=== PATIENT | female | born 1965 | race Caucasian/White ===

== ENCOUNTER → 2017-06-06 | Outpatient (CLI) | payer OTHER ==
[~2017-06-06] MED LIST: CYAN10005 PO; FERR50TA3 PO; MULT-506; MULT-506 PO
[2017-06-06 10:09] LABS: BASO % 0.5 %; BASO ABS # 0.03 K/uL (0-0.2); EOS % 2.9 %; EOS ABS # 0.16 K/uL (0-0.5); HEMOGLOBIN 13.1 g/dL (12.0-16.0); LYMPH % 35.9 %; MEAN CELL VOLUME 89.8 fL (80-100); MEAN CORPUSCULAR HGB CONC 34.5 g/dl (32-36); MEAN PLATELET VOLUME 9.8 fL (7.4-10.4); MONO % 5.9 %; MONO ABS # 0.33 K/uL (0.11-0.59); NEUT % 54.8 %; NEUT ABS # 3.05 K/uL (1.4-6.5); PLATELET COUNT 267 K/uL (130-400); RED CELL DISTRIBUTION WIDTH CV 12.2 % (11.5-14.5); RED CELL DISTRIBUTION WIDTH SD 39.4 fL (36.4-46.3); WHITE BLOOD COUNT 5.57 K/uL (4.8-10.8)
[2017-06-06 10:46] LABS: BLOOD UREA NITROGEN 20 mg/dl (7-18); CALCIUM 9.3 mg/dl (8.5-10.1); CARBON DIOXIDE 24 mmol/L (21-32); CREATININE 0.92 mg/dl (0.60-1.20); GLUCOSE 89 mg/dl (70-99); POTASSIUM 3.7 mmol/L (3.5-5.1); SODIUM 138 mmol/L (136-145)
== END | disposition home or self-care (01) ==
LOC: C.CPL 09:35
PROVIDERS: ATTEND Orthopaedic Surgery
DX: Z01.818 Encounter for other preprocedural examination (principal); S83.242A Other tear of medial meniscus, current injury, left knee, initial encounter; X58.XXXA Exposure to other specified factors, initial encounter

== ENCOUNTER → 2017-06-29 | Day surgery (SDC) | payer OTHER ==
[2017-06-12 07:17] VITALS: Ht 160 cm; Wt 59.1 kg
[~2017-06-29] VITALS: Ht 160 cm; Wt 59.1 kg
[~2017-06-29] MED LIST changes: +ATROPINE SULFATE 0.1 MG/ML 5ML SYR IV PRN; +CEFAZOLIN 1000MG IV PUSH 7.5 ML IV SCH; +DEXAMETHASONE SOD INJ 4 MG/ML VIAL ONE; +EpHEDrine SULFATE INJ 50 MG/ML AMP IV PRN; +EpINEphrine INJ 1MG/ML AMP 1 MG/ML AMP ONE; +FENTANYL CITRATE INJ 50 MCG/1 ML 2 ML VIAL IV PRN; +FENTANYL CITRATE INJ 50 MCG/1 ML 2 ML VIAL ONE; +HYDR-5688 PO; +HYDROCODONE/ACETAMIN 5/325MG TAB PO PRN; +KETOROLAC TROMETHAMINE 30 MG/ML VIAL ONE; +LACTATED RINGER'S 1000ML 1,000 ML IV SCH; +LIDOCAINE HCL 2% 2 ML VIAL (20MG/ML) ONE; +MIDAZOLAM HCL 1 MG/ML 2ML VIAL ONE; -MULT-506; +ONDANSETRON INJ 2 MG/ML 2 ML VIAL IV PRN; +ONDANSETRON INJ 2 MG/ML 2 ML VIAL ONE; +PROPOFOL IV EMULSION 10 MG/ML 20 ML VIAL IV ONE; +ROPIVACAINE 0.5% 5 MG/ML 30 ML VIAL ONE; +SODIUM CHLORIDE 0.9% 1000ML 1,000 ML IV SCH
--- NOTE | 2017-06-29 10:33 | History & Physical Bridge - [place] ---
H&P Re-Evaluation Bridge Note: I have examined the patient, reviewed the History & Physical and in the interval since the performance of the History & Physical I have noted the following changes of clinical significance: No changes noted
--- NOTE | 2017-06-29 12:55 | [facility] Post Operative Brief Note ---
Immediate Operative Summary Operative Date Jun 29, 2017. Pre-Operative Diagnosis Left Knee Medial Meniscal Tear, Pain Post-Operative Diagnosis Same with chondromalacia Procedure(s) Performed Left Knee Arthroscopy With Partial Medial Meniscectomy and Chondroplasty Surgeon Dr. Nayak [employer] Intern Surgeon(s) Mandi Block PA-C Estimated Blood Loss 5 ml Findings Consistent with Post-Op Diagnosis Specimens None Anesthesia Type General Complication(s) none Disposition Disposition: Recovery Room / PACU
--- NOTE | 2017-06-29 13:02 | Discharge Instructions-SurgCtr ---
Discharge Instructions Date of Service Jun 29, 2017. Visit Reason for Visit: Left Knee Acute Medial Meniscal Tear, Pain Discharge Discharge Diagnosis / Problem: SAME ABOVE Discharge Goals Goal(s): Decrease discomfort, Improve function Activity Recommendations Activity Limitations: as noted below Lifting Limitations: gradually increase as tolerated Exercise/Sports Limitations: gradually increase as tolerated Shower/Bathe: tomorrow Anesthesia . Post Anesthesia Instructions: If you have had General Anesthesia or IV Sedation: * Do not drive today. * Resume driving when surgeon permits. * Do not make important decisions or sign legal documents today. * Call surgeon for: 1. Temperature elevations greater than 101 degrees F. 2. Uncontrollable pain. 3. Excessive bleeding. 4. Persistent nausea and vomiting. 5. Medication intolerance (nausea, vomiting or rash). * For nausea and vomiting use only clear liquids such as: tea, soda, bouillon until nausea subsides, then gradually increase diet as tolerated. * If you have any concerns or questions, call your surgeon's office. If physician is unavailable and it is an emergency, call 911 or go to the nearest emergency room. . Instructions / Follow-Up Instructions / Follow-Up MEDICATIONS: * Resume previous medications unless instructed otherwise by your surgeon. * Always take pain medication on a full stomach or with food to avoid upset stomach. * Do not drink alcohol or drive while taking narcotics. * Ibuprofen or Tylenol may be taken if narcotic not needed. SPECIAL CARE INSTRUCTIONS: __ None _X_ Keep extremity elevated and iced x 48 hours; apply ice 20-30 minutes 8-10 times/day. May remove at night. _X_ Crutches _X_ May discard when able __ Brace/Post-op shoe __ 24 hrs/day __ Remove at night _X_ Dressing __ Maintain until seen in office, may shower with plastic over site _X_ Remove dressings in 24-48 hours and then may shower _X_ Cover incisions with band-aids after showering __ Do not remove steri-strips Call physician if chills or temperature rises above 102 degrees or pain unrelieved by prescribed pain medications. Office [phone] Diet Recommendations Home Diet: no limitations Fluid Restriction: None Procedures Procedures Performed: Left Knee Arthroscopy With Partial Medial Meniscectomy and Chondroplasty Pending Studies Studies pending at discharge: no Work Instructions Return To Work: after follow-up Medical Emergencies . Who to Call and When: Medical Emergencies: If at any time you feel your situation is an emergency, please call 911 immediately. . Non-Emergent Contact Non-Emergency issues call your: Primary Care Provider Call Non-Emergent contact if: you have a fever, temperature is above 101.5 . . "Provider Documentation" section prepared by Mani Block. .
--- NOTE | 2017-06-29 13:15 | OPERATIVE REPORT ---
DATE OF OPERATION: 06/29/2017 PREOPERATIVE DIAGNOSIS: Medial meniscus tear of the left knee. 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 PROCEDURE: Left knee arthroscopy with partial medial meniscectomy and chondroplasty. SURGEON: Dr. Andrew Nayak. DEATH CLAIM EXAMINER: Mani Block PA-C, whose assistance was necessary for positioning of the leg and helping with arthroscopic instrumentation and closure. ANESTHESIA: General. COMPLICATIONS: None. CONDITION: Stable to PACU. INDICATIONS: Vero is a pleasant 52-year-old female who stepped awkwardly off a curb back in March. This was while she was working at [employer]. She has been having significant medial-sided knee pain since. MRI and clinical examination were diagnostic for medial meniscus tear of the left knee. After failing conservative treatment, she elected to undergo arthroscopy. DESCRIPTION OF PROCEDURE: On 06/29/2017, she arrived at [facility] for the above procedure. She was seen in the preoperative holding area and the operative extremity was identified and signed. She was given a preoperative antibiotic, taken back to operating room, laid on the table in supine position and put under general anesthesia. The left knee was then prepped and draped in sterile fashion. Time-out was done and the patient's operative extremity was properly identified. A scope was introduced into a lateral parapatellar portal. Diagnostic arthroscopy showed no loose bodies in suprapatellar pouch. There was no cartilage damage on the trochlea or the patella. The scope was brought into the medial compartment. There was some grade 4 chondral loss on the medial aspect of the distal medial femoral condyle and some areas of unstable cartilage. There was also very complex medial meniscus tear. A medial parapatellar portal was made under direct visualization. A shaver was used to remove the unstable portions of meniscus and complete a partial meniscectomy to get the meniscus back to stable margins. Shaver was also used to complete an acromioplasty and remove all the unstable cartilage fragments off the distal medial femoral condyle. Multiple pictures were taken. The scope was brought into the trochlea. ACL and PCL were intact. The scope was brought into the lateral compartment and there was no meniscus or cartilage damage laterally. The scope was then placed in the medial parapatellar portal. Repeat diagnostic arthroscopy showed no additional pathology. The knee was then irrigated and arthroscopic instrument removed. Portal sites were closed with 3-0 nylon. The knee was then injected with 30 mL of Naropin with epinephrine and Toradol. She was then placed in a soft compressive dressing, extubated, transferred to a [facility] and taken to the postanesthesia care unit in stable condition. She tolerated the procedure well. I attest to the content of the Intraoperative Record and any orders documented therein. Any exception s are noted below.
[2017-06-29 13:38] VITALS: BP 119/82; TEMP 36.5
[2017-06-29 13:58] VITALS: PULSE 60; O2SAT 100
--- NOTE | 2017-06-29 14:17 | Anesthesia Progress Nt - [facility] ---
Anesthesia Post Op Note Date & Time Jun 29, 2017 at 14:17 Vital Signs Pain Intensity: 0 Vital Signs Past 12 Hours Date Time Temp Pulse Resp B/P (MAP) Pulse Ox O2 Delivery O2 Flow Rate FiO2 06/29/17 13:58 60 16 100 Room Air 06/29/17 13:38 36.5 76 16 119/82 (94) 100 Room Air 06/29/17 13:30 36.8 100 Room Air 06/29/17 13:03 36.8 90 16 123/75 98 Mask 7 06/29/17 10:46 37.4 88 22 112/76 (88) 100 Room Air Notes Mental Status: alert / awake / arousable, participated in evaluation Pt Amnestic to Procedure: Yes Nausea / Vomiting: adequately controlled Pain: adequately controlled Airway Patency, RR, SpO2: stable & adequate BP & HR: stable & adequate Hydration State: stable & adequate Anesthetic Complications: no major complications apparent
== END | disposition home or self-care (01) ==
LOC: X.SURG 10:18
PROVIDERS: ATTEND Orthopaedic Surgery
DX: S83.232A Complex tear of medial meniscus, current injury, left knee, initial encounter (principal); M94.262 Chondromalacia, left knee; X58.XXXA Exposure to other specified factors, initial encounter; Z98.890 Other specified postprocedural states; Z83.3 Family history of diabetes mellitus; Z85.43 Personal history of malignant neoplasm of ovary